=== PATIENT | female | born 1995 | race African-American/Black ===

== ENCOUNTER 2017-08-24 18:52 | Inpatient (IN) | payer SELFPAY ==
[2017-08-24 19:34] LABS: Bilirubin Negative (Negative); Blood, Urine Negative (Negative); Glucose, Urine (Dipstick) Negative (Negative); Ketone, Urine Trace mg/dL (Negative); Nitrite Negative (Negative); Protein, Urine (Dipstick) 30 mg/dL (Neg-Trace)
[2017-08-24 19:39] LABS: Bacteria/HPF 1+ HPF (None Seen); Hyaline Casts/LPF 7-10 HYALINE CAST LPF (0-3 Hyaline); RBC/HPF 0-3 HPF (0-3); Squamous Epithelial 21-50 HPF (0-3)
[2017-08-24 19:51] LABS: #Basophils 0.1 thou/uL (0.0-0.2); #Eosinphils 0.1 thou/uL (0.0-0.7); #Lymphocytes 1.8 thou/uL (1.20-3.40); #Monocytes 0.9 thou/uL (0.11-0.59); #Neutrophils 9.5 thou/uL (1.40-6.50); %Basophils 0.5 % (0.0-1.0); %Eosinophils 0.5 % (0.0-10.0); %Lymphocytes 14.3 % (21.0-51.0); %Monocytes 7.5 % (0.0-10.0); Mean Platelet Volume 7.9 fL (7.4-10.4); Red Blood Cell (RBC) Count 3.64 mill/uL (4.20-5.40); White Blood Cell (WBC) Count 12.3 thou/uL (4.8-10.8)
[2017-08-24 19:53] LABS: Trichomonas/HPF Rare HPF (None Seen); Yeast-All Forms None Seen HPF (None Seen)
[2017-08-24 20:14] LABS: ALT (SGPT) Less than 7 U/L (8-55); AST (SGOT) 11 U/L (5-34); Alkaline Phosphatase 98 U/L (40-150); Anion Gap 13 mmol/L (10-20); BUN (Urea Nitrogen) 6 mg/dL (7.0-18.7); Bilirubin, Total 0.3 mg/dL (0.2-1.2); Calc. Creatinine Clearance 0 mL/min (70-130); Calcium 8.9 mg/dL (7.8-10.44); Carbon Dioxide 22 mmol/L (22-29); Chloride 104 mmol/L (98-107); Estimated GFR-MDRD Greater than 90; Globulin 3.4 g/dL (2.4-3.5)
--- NOTE | 2017-08-24 23:03 | ULT ---
ULTRASOUND GREATER THAN 14 WEEKS COMPLETE: 08/24/17 HISTORY: 22-year-old female with irregular periods and lower back pain. History of urinary tract infection. A single viable intrauterine fetus is noted in cephalic presentation. The placenta is anterior. Amni otic fluid is within normal limits. heart rate is 147 beats per minute. Cervical length 3.6 cm. ANATOMY: Visualized brain, four chamber heart, three vessel cord, stomach, bladder, kidneys, spine, and extremities regions are unremarkable. BIOMETRY: BPD 6.1 cm - - 24 weeks, 5 days Head circumference 23.3 cm - - 25 weeks, 3 days Abdominal circumference 20 cm - - 24 weeks, 4 days Femur length 4.92 cm - - 26 weeks, 4 days IMPRESSION: Single viable intrauterine fetus, 25 weeks, 1 day. EDC 12/06/17. Estimated weight 807 grams. POS: [facility]
[2017-08-24 23:15] LABS: PTT 30.1 SEC (22.9-36.1)
[2017-08-25 00:04] VITALS: BMI 21.1
[2017-08-25] MEDS ORDERED: Ondansetron ODT 4 MG TAB PO PRN (01:04)
[2017-08-25] MEDS ORDERED: Calcium Gluconate 4.6 MEQ in Sodium Chloride 0.9% 100 ML IVPB PRN (01:19)
[2017-08-25] MEDS ORDERED: Promethazine HCl 25 MG/ML VIAL IM/IV PRN (01:19)
[2017-08-25] MEDS ORDERED: Magnesium Sulfate 20 GM/WATER 500 ML BAG IVPB SCH (01:30)
[2017-08-25] MEDS: Lactated Ringer's 1,000 ML IV SCH ×3 (01:58→23:00)
[2017-08-25] MEDS: Betamet Acet/Betamet Na Ph 30 MG/5 ML VIAL IM SCH (01:59)
[2017-08-25] MEDS: metroNIDAZOLE 500 MG TAB PO SCH ×4 (02:28→08:02)
[2017-08-25] MEDS: Acetaminophen 500 MG TAB PO PRN ×4 (02:28→18:31)
[2017-08-25 02:42] LABS: Amphetamine Not Detected (NotDetected); Methadone Not Detected (NotDetected); Methamphetamine Not Detected (NotDetected)
[2017-08-25] MEDS: hydrOXYzine 25 MG/ML VIAL IM PRN ×2 (02:50→11:02)
--- NOTE | 2017-08-25 07:37 | PDOC.EVN ---
Event Note - Event Note Event Note: Pt BPs 110-120s/60-70s NAD FHT moderate vaiability with occ mild variable decels toco occ resp. unlabored A/P: 1. 25.2 week IUP with reassuring NST 2. GHTN vs. Pre-e * Magnesium * betamethasone * 24 urine collection in progress * BPs wnl on magnesium 3. No care, incidental 4. Trichomonas * flagyl 2 grams PO over several hours to minimize GI upset 5. Drug/etoh use in 6. History of pre-e in Preg #3 treated with magnesium, delivery at 29 weeks
--- NOTE | 2017-08-25 07:52 | HP ---
DATE OF SERVICE: 08/25/2017 CHIEF COMPLAINT: Incidental with elevated blood pressures. HISTORY OF PRESENT ILLNESS: At the time of presentation, Ms. Mckinnon is a 22-year-old 4, p lida P3 female who presented to the emergency department with complaints of blurry vision. During he r evaluation in the emergency department, she was found to be with a gestational age of 25 weeks 2 days based on an ultrasound done this evening. The patient denied any knowledge of the preg chang. She states that her last menstrual period was end of June, but she does not have regular p eriods. The patient was noted to have elevated blood pressures in the emergency department in the 1 50s to 160s/80-90. The patient has a history of preeclampsia, which was treated with magnesium and delivery at 29 weeks in her last . Upon arriving to Labor and Delivery the patient states that she has had blurry vision intermittently for the last 4 days. She does report a bitemporal headache that has been going on for the last 4 d ays as well for which she did try some Tylenol a few days ago 650 mg without relief. She denies any scatoma. She reports chills, but no fever. She did have an episode of emesis in the emergency dep artment, but denies any constipation or diarrhea. She denies any cardiovascular or respiratory comp laints and states that when she lies flat on her back she does feel a heaviness in her chest. She d enies any hematuria or dysuria. She denies any vaginal discharge, itching, odor or irritation. While in the emergency department, the patient did admit to both marijuana and alcohol use recently. Additionally, she was found to have Trichomonas present on a urine specimen. PAST MEDICAL HISTORY: Negative. PAST SURGICAL HISTORY: section x3. OBSTETRICAL HISTORY: 1. Term section for arrest of descent notable for a broken blood vessel in the vagina that occurred while pushing and required transfusion of 2 units of blood. 2. Term section notable for elevated blood pressures. 3. Preeclampsia treated with magnesium and delivery at 29 weeks. 4. Current incidental, no care. GYNECOLOGIC HISTORY: The patient denies history of abnormal Pap smear. She reports having gonorrhe a approximately 2 years ago. Trichomonas was identified on urine specimen collected in the emergenc y department. MEDICATIONS: None. ALLERGIES: No known drug allergies. SOCIAL HISTORY: The patient is single. She does smoke. She admits to marijuana use and alcohol us e during this . PHYSICAL EXAMINATION: VITAL SIGNS: Blood pressure is 130-150/80-90, pulse 67, respiratory rate 18, temperature 99.2. GENERAL: Nontoxic appearing female in no acute distress. HEENT: Normocephalic, atraumatic. LUNGS: Clear to auscultation bilaterally without wheezes, rhonchi or rales. CARDIOVASCULAR: Regular rate and rhythm without murmurs, gallops or rubs. OBSTETRIC: heart tracing is category 1 for gestational age. Tocodynamometer shows occasional irregular contraction. ABDOMEN: Gravid, soft, nontender, nondistended, no rebound, no guarding. EXTREMITIES: Without cyanosis, clubbing or edema. NEUROLOGIC: Alert and oriented x3, no focal deficit. 1+ deep tendon reflexes. No clonus. LABORATORY DATA: Ultrasound done in the emergency department on 08/24/2017 showed a 25 week 1 day i ntrauterine with a EDC of 12/06/2017. Fetus weight 807 grams. Cephalic presentation. An terior placenta. No KANDIS was given. Sodium 136, potassium 3.3, creatinine 0.65, AST 11, ALT 7. Whi te blood cell count 12, hematocrit 34, platelets 236. Urinalysis is notable for 30 proteinuria, lar ge leukocyte esterase, 21-50 squamous epithelial cells, trace ketonuria, too numerous to count white blood cells and Trichomonas. ASSESSMENT AND PLAN: 1. A 25-week 2 day intrauterine with category 1 tracing. 2. contractions. The patient's cervix was examined and found to be a tight 1 cm, uneffaced and high station. This may be secondary to the Trichomonas. 3. Trichomonas. The patient will be treated with 2 grams of Flagyl p.o. in a single dose, but for several hours to minimize the GI upset. The patient was instructed that her partners will need to b e treated as well. 4. Elevated blood pressures. The patient, given her history will be admitted and placed on magnesi um. She will receive betamethasone 12 mg IM q.24 hours for 2 doses. We will obtain a 24-hour urine . The patient's blood pressures are currently mild range. Should delivery be indicated we will ini tiate transfer to a higher level of care given her early gestational age. 5. Drug use during the . 6. The patient expresses interest in giving the baby up for adoption. We will discuss with social work. 7. No care. In addition to workup for preeclampsia will also obtain HIV, hepatitis B surf anna antigen, RPR and a complete biophysical profile.
[2017-08-25] MEDS: Potassium Chloride 20 MEQ TAB PO SCH (08:01)
[2017-08-25] MEDS ORDERED: FLU VACC QS2017-18 36 mo. & older 0.5 ML SYRINGE IM ONE (09:00)
--- NOTE | 2017-08-25 09:57 | ULT ---
NONSTRESS BIOPHYSICAL PROFILE: HISTORY: Hypertension in . COMPARISON: None. TECHNIQUE: A nonstress biophysical profile is performed. FINDINGS: Single intrauterine gestation. Vertex presentation. heart tones with a rate of 147 beats per minute. Amniotic fluid index is 13.6 cm. NONSTRESS BIOPHYSICAL PROFILE: TONE: 2 BREATHIN MOVEMENT: 2 AMNIOTIC FLUID: 2 TOTAL SCORE: 8/8 IMPRESSION: Nonstress biophysical profile total score 8/8. POS: [facility]
--- NOTE | 2017-08-25 10:25 | PRG ---
DATE OF SERVICE: 08/25/2017 TIME OF EVALUATION: Around 09:30. LOCATION: Labor and Delivery, in bed 6. ANTEPARTUM LABOR AND DELIVERY NOTE In brief, this is a patient, who was admitted by Dr. Senior last night as a 25-week gestation (25 w eeks and 2 days), prior x3, who was admitted with blurry vision and elevated blood pressur es after first evaluation. Her initial assessment revealed a positive toxicology screen with THC be ing found. She has not had care for this . She was also noted to have Trichomona s on urine specimen assessment. She has been treated for this with Flagyl since admission. Current ly, she is undergoing magnesium IV therapy for blood pressure observation. She states no new issues today SUBJECTIVE: She is doing well, and has good movement, no vaginal bleeding or ruptured membran es. OBJECTIVE: The patient's blood pressure was 121/78. LABORATORY DATA: Complete metabolic profile and CBC were drawn on admission and they were normal. Labs pending include a 24-hour urine collection, which will be done at 02:00 on 08/26/2017. MONITOR: Shows, 1. A class 1 heart rate tracing/reactive nonstress test, even though she is only at 25 weeks. 2. No contractions on tocodynamometer. ASSESSMENT: This is a 22-year-old G4, P3 at 25 weeks and 2 days with initial findings of elevated b lood pressures, but now she is normotensive. There are no further symptoms at this time. It is uns ure if her initial blood pressures were due to the THC, which was in her system or to -harpreet nicol hypertension. PLAN: 1. Follow blood pressure observation for now. 2. Follow 24-hour urine. 3. I discussed with Radiology the patient's ultrasound. Per the radiologist, there is no evidence of placenta previa, although there is an anterior placenta. There is no suspicion of accreta. 4. Biophysical profile done this morning was normal at 8/8. 5. Continue inhouse observation. 6. The plan is for magnesium sulfate for 24 hours with possible in-house observation for 48 hours a fter that, and if the blood pressures are stable, we may allow for outpatient management. 7. Case management has been consulted, as she has voiced the possibility that this child will be pl aced for adoption and case management will also help with care arrangements.
[2017-08-25 10:35] LABS: #Lymphocytes 0.9 thou/uL (1.20-3.40); #Monocytes 0.1 thou/uL (0.11-0.59); #Neutrophils 10.5 thou/uL (1.40-6.50); %Basophils 0.1 % (0.0-1.0); %Eosinophils 0.1 % (0.0-10.0); %Lymphocytes 7.6 % (21.0-51.0); %Monocytes 0.7 % (0.0-10.0); Hematocrit 32.9 % (36.0-47.0); Mean Platelet Volume 8.1 fL (7.4-10.4); Red Blood Cell (RBC) Count 3.54 mill/uL (4.20-5.40); White Blood Cell (WBC) Count 11.4 thou/uL (4.8-10.8)
--- NOTE | 2017-08-25 10:49 | PRG ---
DATE OF SERVICE: 08/25/2017 TIME OF EVALUATION: Around 10:20, it is now 10:27. LOCATION: Labor and Delivery in LDR 6. ANTEPARTUM FOLLOWUP In brief, I was contacted by, Meredith, the patient's nurse, that the patient reported a temporal head ache. I evaluated the patient at bedside, about 5 minutes after the phone call. Her blood pressure was 135/68. Clinically, she did not appear to be in any acute distress. The patient has also rece ived Tylenol for her headache earlier this morning. Currently, there is no evidence of severe hyper tensive emergency; the patient did receive Vistaril previously for similar agitation/complaint of he adache with good results. I have discussed the case with Meredith and the patient's management. As t here currently is no indication for antihypertensive therapy, as an analgesic has already been order ed, we will proceed with another dose of Vistaril for conservative management. Once again, as she i s only 25 weeks and 2 days, we must have high index of suspicion for progressive disease if we are g oing to proceed with the delivery. For now, expectant management would be in the best interes t. I have discussed this with the patient as well. Currently, there is no evidence of severe hyper tensive emergency.
[2017-08-25 10:59] LABS: ALT (SGPT) Less than 7 U/L (8-55); AST (SGOT) 8 U/L (5-34); Alkaline Phosphatase 95 U/L (40-150); Anion Gap 12 mmol/L (10-20); BUN (Urea Nitrogen) 4 mg/dL (7.0-18.7); Bilirubin, Total 0.3 mg/dL (0.2-1.2); Calc. Creatinine Clearance 127 mL/min (70-130); Calcium 7.6 mg/dL (7.8-10.44); Carbon Dioxide 20 mmol/L (22-29); Chloride 105 mmol/L (98-107); Estimated GFR-MDRD Greater than 90; Globulin 2.9 g/dL (2.4-3.5); Magnesium 4.9 mg/dL (1.6-2.6)
[2017-08-25] MEDS: Magnesium Sulfate 20 gm/500 ml 20 GM/500 ML BAG IVPB SCH ×2 (11:49→20:29)
[2017-08-26] MEDS: Betamet Acet/Betamet Na Ph 30 MG/5 ML VIAL IM SCH (02:51)
[2017-08-26] MEDS: Acetaminophen 500 MG TAB PO PRN ×4 (02:53→20:43)
--- NOTE | 2017-08-26 03:08 | PRG ---
DATE OF SERVICE: 08/26/2017 TIME OF EVALUATION: 0110 hours. TIME OF DICTATION: 0115 hours. LOCATION: Labor and Delivery in LDR 6. HISTORY OF PRESENT ILLNESS: In brief, I just evaluated the patient's monitor. There is decre ased variability; however, the estimated gestational age is 25 weeks and 3 days, and the patient is also on magnesium sulfate. She has also received betamethasone. Both magnesium sulfate and betamet hasone may be affecting the heart rate variability. Additionally, it may be a result of the e augie gestational age at 25 weeks' and 3 days. There is no pathological decelerations at this time a nd there is no evidence of contractions or uterine hypertonus. Therefore, we will continue with our current plan. A 24 hours of magnesium sulfate will be done at approximately 2:00 a.m. and we will continue to monitor blood pressures at that time. Currently, her review of blood pressures show perla t her pressures are normal. Her last blood pressure was 111/65 at 0101 hours. Pressures have been ranging from 127/74 to 100/57. No current evidence of preeclampsia exists at this time. ASSESSMENT: This is a patient at 25 weeks' and 3 days, positive for cannabis and diagnosed with Tri chomonas yesterday. She has a history of 3 prior C-sections. She has been observed for elevated bl ood pressures when she first arrived. PLAN: 1. Continue the plan as previously dictated. 2. Magnesium sulfate will be over at 2 a.m. or so this morning. 3. We will continue to follow blood pressure for now, although there is currently no evidence of hy pertensive complications.
[2017-08-26 05:22] LABS: Collection Duration 24 hrs
[2017-08-26 05:41] LABS: Protein, Urine Less than 10 mg/dL (1-14)
--- NOTE | 2017-08-26 07:27 | PRG ---
DATE OF SERVICE: 08/26/2017 Status post magnesium sulfate/hospital day #1 SUBJECTIVE: In brief, this is a patient status post admission on 08/25/2017 by mayo Headley ho admitted the patient for blood pressure evaluation. She has been in labor and delivery, status p ost magnesium sulfate, now for 24 hours. Her 24-hour urine collection, which was over at about 2 in the morning revealed no urine protein. She has also been treated for Trichomonas this admission. As point of recall, she was positive for marijuana use in this . She also has a history of 3 prior C-sections. This child is for adoption. In brief, since magnesium sulfate has been discon tinued, the patient's blood pressures ranged from 138/85-118/70. There is no evidence of severe blo od pressures. Additionally, despite an occasional mild headache, there is no right upper quadrant p ain, or visual changes. I evaluated the patient at bedside and find no evidence of severe preeclamp tic symptoms or signs. ASSESSMENT: This is the patient hospital day #1 status post 24 hours of magnesium sulfate who is he re for blood pressure evaluation. Currently, there is no evidence of hypertensive disease. Her uri ne protein is negative. PLAN: 1. We will transfer to the antepartum floor for today with continue blood pressure measurements. I f her blood pressures remain in the normal range today, we will likely send her home tomorrow. 2. Social work/case management has been notified as this child is for adoption. 3. No acute needs at this time.
[2017-08-26] MEDS: Potassium Chloride 20 MEQ TAB PO SCH (11:08)
[2017-08-26] MEDS: Prenatal Vitamin 1 TAB PO SCH (11:10)
[2017-08-26] MEDS ORDERED: Mag-Al 1200 mg/1200 mg/30 ML UDCUP PO PRN (20:50)
[2017-08-27] MEDS: Acetaminophen 500 MG TAB PO PRN ×2 (02:30→08:44)
[2017-08-27 07:35] VITALS: BP 104/60; TEMP 97.9
[2017-08-27] MEDS: Prenatal Vitamin 1 TAB PO SCH (08:44)
[2017-08-27 10:08] LABS: #Eosinphils 0.1 thou/uL (0.0-0.7); #Lymphocytes 1.5 thou/uL (1.20-3.40); #Monocytes 1.4 thou/uL (0.11-0.59); #Neutrophils 12.5 thou/uL (1.40-6.50); %Basophils 0.2 % (0.0-1.0); %Eosinophils 0.7 % (0.0-10.0); %Lymphocytes 9.6 % (21.0-51.0); %Monocytes 8.9 % (0.0-10.0); Mean Platelet Volume 7.9 fL (7.4-10.4); Red Blood Cell (RBC) Count 3.17 mill/uL (4.20-5.40); White Blood Cell (WBC) Count 15.6 thou/uL (4.8-10.8)
--- NOTE | 2017-08-27 10:35 | PRG ---
DATE OF SERVICE: 08/27/2017 TIME: 10:22 This is a complete blood count follow up SUBJECTIVE: In brief, this patient has been cleared for discharge later this morning. I have obtai chloé a CBC as the patient has a nonspecific generalized complaint that at this point compatible with discomforts of . The CBC does show a white blood cell count elevation of 15.6; however, I ordered the CBC prior to remembering that the patient has received steroids. This slight leukocytos is reflects recent steroid administration. She continues afebrile with normal vital signs. As ther e is no evidence of labor, or vaginal bleeding, we still plan to discharge the patient home with close followup.
--- NOTE | 2017-08-27 16:56 | DIS ---
DATE OF ADMISSION: 08/25/2017 DATE OF DISCHARGE: 08/27/2017 PRINCIPAL DIAGNOSES: 1. . 2. Multigravida. 3. Prior section x3. 4. History of cannabis use during this . PRINCIPAL PROCEDURES PERFORMED: 1. A 24-hour urine collection. 2. monitoring. 3. Obstetrical ultrasound. 4. Biophysical profile study. HISTORY OF PRESENT ILLNESS: In brief, this is a patient who was admitted by Dr. Trent Senior on as a 22-year-old G4, P3 who came in with a complaint of blurry vision. She was positive fo r cannabis at that time. She also had some blood pressures of 150s to 160s systolics with diastolic s in the 80s-90s. She was admitted to Labor and Delivery for blood pressure evaluation. Her 24-maryellen r urine collection returned with no evidence of protein in the urine with an adequate collection of 3400 mL of total volume. She was also diagnosed with trichomoniasis and received Flagyl during this gestation. Ultrasound revealed a compatible with 25 weeks and 1 day with no other abnorm alities. This was the ultrasound that was used to date the . Based on this, the EDC is . Throughout her hospitalization, the patient received magnesium sulfate for 24 hours after initial admission. The blood pressures remained within the normal range. I assessed the patient o n 08/25/2017 as well as 08/27/2017 while I was on-call and confirmed that her blood pressures remain ed normotensive with a range of 134/76-104/60. Pulse was also in the 60s and normal. She was afebr ile. There was no evidence of labor, abruption, ruptured membranes or distress. Urdon e culture grew back no growth at 36 hours. I evaluated the patient on 08/27/2017 and that she was c linically stable, the decision was made to discharge her home with outpatient followup. It is impor tant to note that social work has been consulted as she has voiced desire to place this baby for ado ption and social work is helping with that. We have also suggested followup at either the Clinic or [facility] for continued care and later scheduling of her repeat . Jackelyn raheel was also briefed on the unknown risks of cannabis use during the . She was advised to st op. During the ultrasound, there was no evidence of placenta previa or accreta as per personal comm unication with the radiologist.
== END 2017-08-27 11:33 | disposition home or self-care (01) | DRG 781 ==
LOC: L&D/OP 18:52 → ERS 18:52 → EDSTATUS 23:53 → L&D 08-25 01:23 → 3SE 08-26 11:04
PROVIDERS: ADMIT Obstetrics & Gynecology Obstetrics; ATTEND Obstetrics & Gynecology Obstetrics
DX: O98.312 Other infections with a predominantly sexual mode of transmission complicating pregnancy, second trimester (principal); O60.02 Preterm labor without delivery, second trimester; O99.322 Drug use complicating pregnancy, second trimester; A59.01 Trichomonal vulvovaginitis; F12.90 Cannabis use, unspecified, uncomplicated; R03.0 Elevated blood-pressure reading, without diagnosis of hypertension; Z3A.25 25 weeks gestation of pregnancy
CPT/HCPCS: 36415; 76819; 76856; 80053; 80306; 81003; 81015; 81025; 82570; 83735; 84156; 84550; 85025; 85610; 85730; 86780; 86900; 86901; 87086; 87340; 87389; 87480; 87491; 87510; 87591; 87660; 93005; 93010; J0595; J0702; J2550; J3410; J3475; Q0162

== ENCOUNTER 2017-09-16 12:01 | Inpatient (IN) | payer SELFPAY ==
[2017-09-16 12:34] VITALS: BMI 21.1
[2017-09-16] MEDS ORDERED: Calcium Gluc 4.6 MEQ/10 ML (100 MG/ML) SLOW IVP PRN (12:45)
[2017-09-16] MEDS ORDERED: Magnesium Sulfate 20 GM/WATER 500 ML BAG IVPB SCH (12:45)
[2017-09-16] MEDS ORDERED: Magnesium Sulfate 20 gm/500 ml 20 GM/500 ML BAG ONE (12:46)
[2017-09-16] MEDS ORDERED: Ondansetron HCl/PF 8 MG in Sodium Chloride 0.9% 50 ML IVPB PRN (12:48)
[2017-09-16] MEDS: Lactated Ringer's 1,000 ML IV SCH (12:57)
[2017-09-16] MEDS ORDERED: FLU VACC QS2017-18 36 mo. & older 0.5 ML SYRINGE IM ONE (13:00)
--- NOTE | 2017-09-16 13:22 | PRG ---
DATE OF SERVICE: 09/16/2017 FOLLOWUP ASSESSMENT TIME: 13:10 In brief, I just discussed with the patient at bedside our plan of care. As she is only 28 weeks and 3 days by unsure criteria, the plan is to gain as much time as possible for benefit. We will order labs, give magnesium sulfate , and evaluate for symptoms of labor. As I was discussing these things with her, the die maintenance technician arrived to perform transabdominal ultrasound. I also asked to take a visual assessment of her cervical length. I collected Fibronectin myself and I have sent this off to the lab. The patient states no recent marijuana use or recent intercourse. Last marijuana use was just over 1 week ago. We have ordered urine toxicology screen as well. For now, we will continue to follow. NICU aware (Carmicheal). MTDD
[2017-09-16] MEDS: Magnesium Sulfate 20 gm/500 ml 20 GM/500 ML BAG IVPB SCH ×2 (13:25→20:49)
[2017-09-16 13:32] LABS: #Lymphocytes 1.3 thou/uL (1.20-3.40); #Monocytes 0.6 thou/uL (0.11-0.59); #Neutrophils 7.6 thou/uL (1.40-6.50); %Basophils 0.1 % (0.0-1.0); %Eosinophils 0.5 % (0.0-10.0); %Lymphocytes 13.4 % (21.0-51.0); %Monocytes 5.8 % (0.0-10.0); Hematocrit 34.7 % (36.0-47.0); Mean Platelet Volume 8.3 fL (7.4-10.4); Red Blood Cell (RBC) Count 3.76 mill/uL (4.20-5.40); White Blood Cell (WBC) Count 9.5 thou/uL (4.8-10.8)
[2017-09-16 13:34] LABS: Bilirubin Negative (Negative); Blood, Urine Negative (Negative); Glucose, Urine (Dipstick) Negative (Negative); Ketone, Urine Negative (Negative); Nitrite Negative (Negative); Protein, Urine (Dipstick) Negative (Neg-Trace); Urobilinogen 0.2 mg/dL (0.2-1.0)
[2017-09-16 13:37] LABS: Bacteria/HPF 1+ HPF (None Seen); Hyaline Casts/LPF 0-3 HYALINE CAST LPF (0-3 Hyaline); RBC/HPF 0-3 HPF (0-3)
[2017-09-16] MEDS: Ondansetron HCl/PF 4 MG/2 ML Vial IVP PRN (13:37)
[2017-09-16 13:44] LABS: Amphetamine Not Detected (NotDetected); Methadone Not Detected (NotDetected); Methamphetamine Not Detected (NotDetected)
[2017-09-16 13:53] LABS: ALT (SGPT) Less than 7 U/L (8-55); AST (SGOT) 10 U/L (5-34); Alkaline Phosphatase 133 U/L (40-150); Anion Gap 11 mmol/L (10-20); BUN (Urea Nitrogen) 7 mg/dL (7.0-18.7); Bilirubin, Total 0.3 mg/dL (0.2-1.2); Calc. Creatinine Clearance 127 mL/min (70-130); Calcium 8.8 mg/dL (7.8-10.44); Carbon Dioxide 21 mmol/L (22-29); Chloride 108 mmol/L (98-107); Estimated GFR-MDRD Greater than 90; Globulin 3.1 g/dL (2.4-3.5); Protein, Total 6.3 g/dL (6.0-8.3)
[2017-09-16] MEDS ORDERED: Ondansetron HCl/PF 4 MG/2 ML Vial ONE (13:58)
--- NOTE | 2017-09-16 14:16 | PRG ---
LABORATORY ASSESSMENT DATE OF SERVICE: 09/16/2017 TIME OF EVALUATION: 13:43 In brief, the patient's labs have returned, although not all of them are complete. CBC shows a whit e blood cell count that is normal at 9.5, hematocrit is normal at 34, platelets are normal at 211,00 0. Urinalysis shows small leukocyte esterase with 1+ bacteria. There is no evidence of ketones or blood. Nitrites are negative. We have ordered empiric treatment with IV Rocephin 1 gram q.24 hours in case there is any cystitis. fibronectin has been ordered, but that is still pending. Ult rasound has been done, which shows that the baby is in a cephalic presentation. Placenta is anterio r fundal, but there is some concern that it is grade 3. Cervical length by transabdominal assessmen t appears grossly normal with no funneling. Cervical length is about 3.3 cm. Amniotic fluid index is also normal at around 13. heart tones are normal in the 140s by ultrasound. All the douglas eters support, the stated gestational age assessment of 28 weeks by composite formula. For now, we will treat with the Rocephin, await the FFN and a complete metabolic profile. Blood pressure is cur rently are in the 140s/90s.
--- NOTE | 2017-09-16 14:39 | PRG ---
LABORATORY ASSESSMENT DATE OF SERVICE: 09/16/2017 TIME: 14:26. In brief, the patient's labs have returned. The complete metabolic profile is normal. There is no evidence of elevated liver function. Toxicology is positive for cannabis. fibronectin is neg ative. Continue to follow.
--- NOTE | 2017-09-16 14:49 | ULT ---
OB FOLLOW-UP: Date: 09/16/17 COMPARISON: 08/24/17, 08/25/17. HISTORY: -induced hypertension. Grade III lobulated placenta. 28 weeks. Need estimated weight. TECHNIQUE: Sagittal and transverse imaging of a gravid uterus is performed. FINDINGS: Single intrauterine gestation with vertex presentation. Anterior placenta. No evidence of previa. Li mited evaluation of the cervix due to shadowing secondary to vertex presentation. Placenta has a heterogeneous appearance with placental lakes. Grade III placenta is noted. heart tones with a rate of 147 beats/minute. Biometry: BPD: 7.21 cm, 29 weeks/0 days HC: 26.71 cm, 29 weeks/1 day AC: 22.53 cm, 27 weeks/0 days FL: 5.69 cm, 29 weeks/6 days Average age by sonography is 28 weeks/5 days. Estimated delivery date of 12/04/2017. Estimated weight is 1,203 gm, +/- 178 gm. Survey: The following structure were adequately demonstrated: Diaphragm, cord insertion, bladder, three ves jose cord, and four chamber heart. Amniotic fluid index is 13.8 cm. IMPRESSION: Single intrauterine gestation with heart tones. Average age by sonography is 28 weeks/5 days. Estimated delivery date of 12/04/2017. Estimated weight is 1,203 gm, +/- 178 gm. POS: [facility]
[2017-09-16] MEDS: cefTRIAXone\\ROCEPHIN 1 GM, Admixture Fee 1 EACH in Sodium Chloride 0.9% 100 ML IVPB SCH (16:06)
[2017-09-16] MEDS: Labetalol HCl 100 MG/20 ML VIAL SLOW IVP SCH ×2 (16:11→17:34)
[2017-09-16] MEDS: Acetaminophen 500 MG TAB PO PRN (17:15)
--- NOTE | 2017-09-16 17:27 | HP ---
DATE OF ADMISSION: 09/16/2017 TIME: 1230. LOCATION: Labor and Delivery. REASON FOR ADMISSION: 1. High blood pressure, at 28 weeks and 3 days. 2. This is a patient with no obstetrical provider yet. HISTORY OF PRESENT ILLNESS: In brief, this is a 22-year-old 4, para 3 with 3 prior sections, who was last seen eye Dr. Senior on 08/25/2017. At that time, the patient presented wit h some irregular contractions and was found to have some elevated blood pressures. She underwent a blood pressure evaluation and was also given betamethasone for lung maturity. There was a ful l course of steroids. For full details, please turn to that dictation dated 08/25/2017, which was p erk admission last evaluation at this institution. She also has a history of trichomoniasis found o n urine specimen, which was treated last admission with 2 grams of Flagyl. She arrives now with simin e irregular contractions and headache. She does have some right upper quadrant discomfort. REVIEW OF SYSTEMS: Complete review of systems was checked and is otherwise negative unless specifie d in the HPI. PAST MEDICAL HISTORY: Otherwise, negative. PAST SOCIAL HISTORY: Significant for marijuana use. PAST SURGICAL HISTORY: Significant for x3. PAST OB HISTORY: 1. She had term section for arrest of descent, for which she required 2 units of blood. S he also has a history of term section notable for elevated blood pressure in the past. 2. She has a history of preeclampsia, treated with magnesium sulfate at 29 weeks previously. 3. With this current , she was just diagnosed with this earlier this month and h as not established formal care. PAST GYNECOLOGIC HISTORY: Significant for having gonorrhea about 2 years ago. She also has a histo ry of trichomoniasis, which was treated earlier in August. ALLERGIES: None. SOCIAL HISTORY: Once again, as previously stated, she does smoke and does use marijuana. PHYSICAL EXAMINATION: VITAL SIGNS: She has a blood pressure of 156/104 and she is afebrile. Pulse is in the 80s-90s. Re spirations are unlabored at 18-20. GENERAL: Clinically, she is in no acute distress, although she looks somewhat uncomfortable. There is no evidence of vaginal bleeding or ruptured membranes on exam. Cervical exam is deferred until fibronectin will be obtained. On external monitor, heart tones are in the 130s to 140s with moderate variability. Nadine ctivity is difficult to gauge as she is only 28 weeks and 3 days, but moderate variability is noted. There are no decelerations. There are some low amplitude contractions and uterine irritability on tocodynamometer with contractions about every 5-7 minutes. These are low amplitude. Interventions ordered. I have ordered a complete metabolic profile, a CBC, a urine protein to creatinine ratio, a urine toxicity screen, Zofran, urinalysis, and fibronectin. I have ordered magnesium sulfate due to her symptoms of headache and elevated blood pressure. ASSESSMENT: This is a patient who is a 22-year-old at 28 weeks and 3 days by unsure criteria (25-we ek ultrasound) with an EDC of 12/06/2017, 25 weeks obtained on the 08/24. She has a history of Flagy l, which is treated. She has a history of preeclampsia in the past (she had 3 prior C-sections). PLAN: 1. Admit to Labor and Delivery. 2. Blood pressure evaluation. 3. Urine toxicology. 4. I have ordered labetalol 20 mg IV x1 to bring her diastolic ratio under 100. 5. Steroids have been given earlier this month, so steroids for lung maturation will not be g iven at this time. 6. If her symptoms continue, and/or blood pressures become overtly elevated and persistent, we may need to proceed with a repeat . At that time, we will notify the neonatology staff. A rep eat at 28 weeks. 7. For now, magnesium sulfate. 8. We will obtain a repeat ultrasound to get an update on estimated weight for now. 9. For now, we will continue with blood pressure control and attempt to gain as much time as possib le for benefit.
[2017-09-16] MEDS ORDERED: diphenhydrAMINE 50 MG/ML VIAL IVP SCH ×2 (18:00→23:00)
[2017-09-16] MEDS ORDERED: Metoclopramide HCl 10 MG/2 ML VIAL IVP SCH ×2 (18:00→23:00)
--- NOTE | 2017-09-16 18:07 | PRG ---
BLOOD PRESSURE FOLLOWUP DATE OF SERVICE: 09/16/2017 TIME: 1756 In brief, the patient's blood pressures remained only mildly elevated from 130sover 90s-140s over 90 s. Mag sulfate is infusing. However, the patient states that she still has a headache. I have ord ered 1 gram of Tylenol for this. I have also ordered a one-time dose of Reglan and Benadryl as alte rnative treatment for the headache for possible migraine. Although, she has a headache with elevate d blood pressure, as she is only 28 weeks. We are attempting to manage her headache symptoms conser vatively for now. Her urine protein was 11. Her creatinine was 59, giving her ratio of 0.18, which is not significantly proteinuria.
[2017-09-16] MEDS ORDERED: Metoclopramide HCl 10 MG/2 ML VIAL ONE (18:11)
--- NOTE | 2017-09-16 19:17 | ULT ---
EXAM: GALLBLADDER ULTRASOUND: 09/16/17 HISTORY: Right upper quadrant pain. Hypertension. patient. COMPARISON: None. TECHNIQUE: Utilizing a multihertz transducer, sonographic imaging of the right upper quadrant is performed in t he longitudinal and transverse plane. FINDINGS: Suboptimal evaluation of the pancreas. Hepatic parenchyma has a normal echotexture. No hepatic masses or intrahepatic biliary dilatation. T he contour of the hepatic margin appears to be maintained. Main portal vein is patent. Appropriate directional flow. Common bile duct diameter is 0.3 cm. No sonographic evidence of cholelithiasis, gallbladder wall thickening or pericholecystic fluid. Neg ative Tijerina's sign. Right kidney has a normal cortical echotexture. No hydronephrosis. Right kidney measures 6.5 x 11.3 x 4.9 cm. IMPRESSION: Unremarkable right upper quadrant ultrasound. No sonographic evidence of cholelithiasis or cholecyst itis. POS: PPP
--- NOTE | 2017-09-16 19:19 | PRG ---
DATE OF SERVICE: 09/16/2017 TIME: 1829. PATIENT FOLLOWUP In brief, I was just asked by Meredith, the patient's nurse, to reassess the patient at bedside. The patient states she still has a headache and is complaining of epigastric discomfort. Her last set o f labs were normal. Blood pressure was 140/90, but has now just spiked to 160/100. We have given l abetalol IV as well. I have also ordered a repeat complete metabolic profile to see if there are an y changes on her serum transaminases. I have also ordered a right upper quadrant ultrasound to rule out other pathology. Normally, if we were more advanced to gestation, we will proceed with repeat as she is a prior patient. However, at 28 weeks and 3 days, we are trying to ga in extra time for maturation. She is in no acute distress clinically, but she looks like she is having some discomfort. We will await the lab reassessment and check her right upper quadrant ul trasound. Magnesium sulfate is currently in use. If she does not improve over the subsequent hours , consideration might be given to proceeding with a repeat .
[2017-09-16 19:36] LABS: ALT (SGPT) Less than 7 U/L (8-55); AST (SGOT) 9 U/L (5-34); Alkaline Phosphatase 130 U/L (40-150); Anion Gap 13 mmol/L (10-20); BUN (Urea Nitrogen) 6 mg/dL (7.0-18.7); Bilirubin, Total Less than 0.2 mg/dL (0.2-1.2); Calc. Creatinine Clearance 112 mL/min (70-130); Calcium 7.9 mg/dL (7.8-10.44); Carbon Dioxide 20 mmol/L (22-29); Chloride 104 mmol/L (98-107); Estimated GFR-MDRD Greater than 90; Globulin 2.9 g/dL (2.4-3.5)
--- NOTE | 2017-09-16 20:26 | PRG ---
DATE OF SERVICE: 09/16/2017 TIME: 19:53. LAB AND ULTRASOUND FOLLOW UP In brief, The patient's complete metabolic profile from this evening has returned and there is no ac jennifer abnormalities. Liver transaminases are not elevated. Right upper quadrant ultrasound was performed, which shows an unremarkable right upper quadrant ultr asound. There is no sonographic evidence of stones, cholecystitis or other abnormalities. Continue to follow.
[2017-09-17] MEDS: Acetaminophen 500 MG TAB PO PRN ×2 (01:11→08:25)
[2017-09-17] MEDS: Lactated Ringer's 1,000 ML IV SCH ×2 (01:12→12:25)
[2017-09-17] MEDS ORDERED: hydrOXYzine Pamoate 25 mg Capsule PO SCH (03:30)
[2017-09-17] MEDS: Magnesium Sulfate 20 gm/500 ml 20 GM/500 ML BAG IVPB SCH (07:10)
[2017-09-17] MEDS ORDERED: Lidocaine 1% (PF) 30 ML VIAL ONE (09:07)
[2017-09-17] MEDS ORDERED: LR / Pitocin 40 units/1000 ml 1,000 ML ONE (09:07)
--- NOTE | 2017-09-17 10:04 | PDOC.EVN ---
Event Note - Event Note Event Note: Pt seen at 0930 S: pt still c/o frontal, sharp RON, no visual disturbance currently except for mild blurry vision. Some Right inguinal pain, no upper abdominal pain. O: Vital Signs (24 hours) Temp Pulse Resp BP BP Pulse Ox 09/17/17 08:03 98.8 F 72 16 97 09/16/17 23:44 98.3 F 66 18 09/16/17 17:34 66 156/98 H 09/16/17 16:11 63 09/16/17 14:29 98.4 F 63 18 100 09/16/17 12:28 98.4 F 63 18 154/93 H 100 Laboratory Results - last 24 hr 09/16/17 09/16/17 09/16/17 12:40 12:40 12:40 WBC RBC Hgb Hct MCV MCH MCHC RDW Plt Count MPV Neutrophils % Lymphocytes % Monocytes % Eosinophils % Basophils % Neutrophils # Lymphocytes # Monocytes # Eosinophils # Basophils # Sodium Potassium Chloride Carbon Dioxide Anion Gap BUN Creatinine Estimated GFR (MDRD) Glucose Calcium Total Bilirubin AST ALT Alkaline Phosphatase Serum Total Protein Albumin Globulin Albumin/Globulin Ratio Urine Color YELLOW Urine Clarity CLEAR Urine pH 7.0 Ur Specific [place] 1.006 Urine Protein Negative Urine Glucose (UA) Negative Urine Ketones Negative Urine Blood Negative Urine Nitrite Negative Urine Bilirubin Negative Urine Urobilinogen 0.2 Ur Leukocyte Esterase Small H Urine RBC 0-3 Urine WBC 4-6 H Ur Squamous Epith Cells 4-6 H Urine Bacteria 1+ H Hyaline Casts 0-3 HYALINE CAST U Random Total Protein 11 Urine Creatinine 59.15 Urine Opiates Screen Not Detected Ur Oxycodone Screen Not Detected Urine Methadone Screen Not Detected Ur Propoxyphene Screen Not Detected Ur Barbiturates Screen Not Detected Ur Tricyclics Screen Not Detected Ur Phencyclidine Scrn Not Detected Ur Amphetamines Screen Not Detected U Methamphetamines Scrn Not Detected U Benzodiazepines Scrn Not Detected U Cocaine Metab Screen Not Detected U Cannabinoids Screen Detected H Drug Screen Comment Fibronectin 09/16/17 09/16/17 09/16/17 13:10 13:21 13:21 WBC 9.5 RBC 3.76 L Hgb 11.7 L Hct 34.7 L MCV 92.5 MCH 31.1 H MCHC 33.6 RDW 12.0 Plt Count 211 MPV 8.3 Neutrophils % 80.2 H Lymphocytes % 13.4 L Monocytes % 5.8 Eosinophils % 0.5 Basophils % 0.1 Neutrophils # 7.6 H Lymphocytes # 1.3 Monocytes # 0.6 H Eosinophils # 0.0 Basophils # 0.0 Sodium 136 Potassium 3.9 Chloride 108 H Carbon Dioxide 21 L Anion Gap 11 BUN 7 Creatinine 0.66 Estimated GFR (MDRD) Greater than 90 Glucose 72 Calcium 8.8 Total Bilirubin 0.3 AST 10 ALT Less than 7 L Alkaline Phosphatase 133 Serum Total Protein 6.3 Albumin 3.2 L Globulin 3.1 Albumin/Globulin Ratio 1.0 L Urine Color Urine Clarity Urine pH Ur Specific [place] Urine Protein Urine Glucose (UA) Urine Ketones Urine Blood Urine Nitrite Urine Bilirubin Urine Urobilinogen Ur Leukocyte Esterase Urine RBC Urine WBC Ur Squamous Epith Cells Urine Bacteria Hyaline Casts U Random Total Protein Urine Creatinine Urine Opiates Screen Ur Oxycodone Screen Urine Methadone Screen Ur Propoxyphene Screen Ur Barbiturates Screen Ur Tricyclics Screen Ur Phencyclidine Scrn Ur Amphetamines Screen U Methamphetamines Scrn U Benzodiazepines Scrn U Cocaine Metab Screen U Cannabinoids Screen Drug Screen Comment Fibronectin Negative 09/16/17 19:06 WBC RBC Hgb Hct MCV MCH MCHC RDW Plt Count MPV Neutrophils % Lymphocytes % Monocytes % Eosinophils % Basophils % Neutrophils # Lymphocytes # Monocytes # Eosinophils # Basophils # Sodium 134 L Potassium 3.3 L Chloride 104 Carbon Dioxide 20 L Anion Gap 13 BUN 6 L Creatinine 0.75 Estimated GFR (MDRD) Greater than 90 Glucose 111 H Calcium 7.9 Total Bilirubin Less than 0.2 L AST 9 ALT Less than 7 L Alkaline Phosphatase 130 Serum Total Protein 6.0 Albumin 3.1 L Globulin 2.9 Albumin/Globulin Ratio 1.1 L Urine Color Urine Clarity Urine pH Ur Specific [place] Urine Protein Urine Glucose (UA) Urine Ketones Urine Blood Urine Nitrite Urine Bilirubin Urine Urobilinogen Ur Leukocyte Esterase Urine RBC Urine WBC Ur Squamous Epith Cells Urine Bacteria Hyaline Casts U Random Total Protein Urine Creatinine Urine Opiates Screen Ur Oxycodone Screen Urine Methadone Screen Ur Propoxyphene Screen Ur Barbiturates Screen Ur Tricyclics Screen Ur Phencyclidine Scrn Ur Amphetamines Screen U Methamphetamines Scrn U Benzodiazepines Scrn U Cocaine Metab Screen U Cannabinoids Screen Drug Screen Comment Fibronectin Gen. NAD Resp. CTA bilat no W, R, R CV. RRR, 2/6 SM, no gallops or rubs Abd. gravid, NT Ext. No C, C, E Neuro. A&O x 3 A/P: 1. 28.r week IUP with reactive NST with mild variable decels and periods of decreased variability possibly related to magnesium. WIll continue to monitor with NST q shift. * s/p BMZ course 08/26/17 2. GHTN with RON. Protein to Cr. ratio 0.186. * Given that RON is frontal may be sinus related. Will try antihistamine and fioricet since course of reglan and benadryl was effective before * consider MRI of head if still no resolution * history of pre-e/hypertensive disease in 2 prior pregnancies 3. No care. Refer pt to PNC upon discharge 4. prior CD x 3, planned repeat 5. Substance abuse with UDS +THC this . Consult IZABELA
[2017-09-17] MEDS ORDERED: Fioricet 325/50/40 mg Tablet PO PRN (14:14)
[2017-09-17] MEDS ORDERED: diphenhydrAMINE 50 MG CAP PO PRN (16:05)
[2017-09-17] MEDS ORDERED: Bisacodyl 10 MG SUPP PR PRN (16:05)
[2017-09-17] MEDS: cefTRIAXone\\ROCEPHIN 1 GM, Admixture Fee 1 EACH in Sodium Chloride 0.9% 100 ML IVPB SCH (17:02)
[2017-09-18] MEDS: Ondansetron HCl/PF 4 MG/2 ML Vial IVP PRN (01:08)
--- NOTE | 2017-09-18 02:08 | PDOC.EVN ---
Event Note - Event Note Event Note: S: Called by RN for pt having RON and then N/V. I asked that she give the zofran and fioricet ordered prn. Pt states she received the zofran, no fioricet. Her RON, N/v have all resolved and she was sleeping when i entered room. O: Vital Signs (12 hours) Temp Pulse Resp BP BP Pulse Ox 09/18/17 00:56 70 153/100 H 09/18/17 00:55 70 154/97 H 09/17/17 22:35 62 18 131/85 09/17/17 19:30 98.4 F 77 18 124/74 140/81 96 09/17/17 16:10 99.2 F 67 20 136/88 Weight Weight 135 lb Gen. NAD Resp. unlabored Abd. gravid, NT A/P: RON and NV both resolved (RON spont without Fioricet). BPs still mild range.
--- NOTE | 2017-09-18 09:59 | PRG ---
DATE OF SERVICE: 09/18/2017 SUBJECTIVE: The patient is hospital day #2 on Rocephin for a presumed UTI. She is 28-29 weeks gest ation with elevated blood pressures, a history of preeclampsia and previous x3. The patie nt's blood pressures were elevated to 150s/100s around midnight, but have been improved since then. She denies headaches, scotoma or blurred vision at this time. Ultrasound revealed an AGA . PAST MEDICAL HISTORY: None. PAST SURGICAL HISTORY: C-sections. SOCIAL HISTORY: Marijuana use. PHYSICAL EXAMINATION: VITAL SIGNS: The latest blood pressure is 144/94, temperature 98.0, pulse 64, respirations 16. HEENT: Within normal limits. ABDOMEN: Soft and nontender with no right upper quadrant pain, no CVA tenderness noted. Fundal hei ght is 28 cm. FHTs are 130s to 140s. EXTREMITIES: Without clubbing, cyanosis or edema. LABORATORY STUDIES: No new laboratory findings. Urine culture is no growth at 24 hours. IMPRESSION: 1. Urinary tract infection. 2. History of preeclampsia with deliveries. 3. Elevated blood pressures without evidence of preeclampsia at this time. PLAN: Continued mcfarlane rest, initiate baby aspirin once daily, continue Rocephin. We will follow blo od pressures. Anticipate discharge home with outpatient follow up on 09/19/2017.
[2017-09-18] MEDS ORDERED: cefTRIAXone\\ROCEPHIN 1 GM, Syringe 0.4 ML in Sterile Water 9.6 ML SLOW IVP SCH (14:00)
[2017-09-18] MEDS: Calcium Carbonate 500 MG ChewTAB PO PRN (23:06)
[2017-09-19] MEDS: Calcium Carbonate 500 MG ChewTAB PO PRN (18:38)
[2017-09-19] MEDS: Ondansetron ODT 8 MG TAB SL PRN (22:41)
[2017-09-20] MEDS: Ondansetron ODT 8 MG TAB SL PRN (07:32)
[2017-09-20] MEDS ORDERED: Lidocaine 2% Viscous Solution 20 ML, Aluminum & Magnesium Hydroxide 30 ML, Donnatal Eli... SSW SCH ×3 (08:00)
[2017-09-20 08:15] LABS: #Basophils 0.1 thou/uL (0.0-0.2); #Eosinphils 0.1 thou/uL (0.0-0.7); #Lymphocytes 1.3 thou/uL (1.20-3.40); #Monocytes 0.7 thou/uL (0.11-0.59); #Neutrophils 5.5 thou/uL (1.40-6.50); %Basophils 1.3 % (0.0-1.0); %Eosinophils 0.9 % (0.0-10.0); %Lymphocytes 17.2 % (21.0-51.0); %Monocytes 9.5 % (0.0-10.0); Hematocrit 34.4 % (36.0-47.0); Mean Platelet Volume 8.4 fL (7.4-10.4); Red Blood Cell (RBC) Count 3.72 mill/uL (4.20-5.40); White Blood Cell (WBC) Count 7.8 thou/uL (4.8-10.8)
[2017-09-20] MEDS ORDERED: Promethazine HCl 25 MG/ML VIAL IM PRN (08:26)
[2017-09-20] MEDS ORDERED: Potassium Chloride 40 MEQ in Premix Bag 1 BAG IVPB SCH (08:30)
[2017-09-20 08:38] LABS: ALT (SGPT) Less than 7 U/L (8-55); AST (SGOT) 22 U/L (5-34); Alkaline Phosphatase 141 U/L (40-150); Anion Gap 12 mmol/L (10-20); BUN (Urea Nitrogen) 9 mg/dL (7.0-18.7); Bilirubin, Total 0.4 mg/dL (0.2-1.2); Calc. Creatinine Clearance 118 mL/min (70-130); Calcium 9.1 mg/dL (7.8-10.44); Carbon Dioxide 24 mmol/L (22-29); Chloride 104 mmol/L (98-107); Estimated GFR-MDRD Greater than 90; Globulin 2.9 g/dL (2.4-3.5); Protein, Total 6.1 g/dL (6.0-8.3)
[2017-09-20] MEDS ORDERED: Lactated Ringer's 1,000 ML IV SCH (08:45)
--- NOTE | 2017-09-20 08:51 | PRG ---
DATE OF SERVICE: 09/20/2017 HISTORY OF PRESENT ILLNESS: The patient is a 22-year-old female admitted for concerns of severe pre eclampsia, was placed on magnesium during the workup and subsequently transferred to the floor. The patient has had some isolated severe pressures that seemed to be associated with episodes of extrem e stress, otherwise pressures have been normal to mild range. This morning I was called to the [facility] room for abdominal pain and vomiting. The patient reports that she had some coffee emesis thi s morning and just feels a lot of abdominal pain that began in her epigastric region and has since m lory more mid abdominal. She denies any uterine contractions. Denies any right upper quadrant tend erness, denies any history of ulcers. PHYSICAL EXAMINATION: VITAL SIGNS: At the time of this episode was 161/104 and then 165/101, temperature 99.2, pulse is 6 5, respiratory rate of 20. GENERAL: In the time that I have seen her, the patient did appear to be in little distress. She i s alert and oriented, and cooperative and pleasant to interact with. HEENT: Head is normocephalic, atraumatic. LUNGS: Clear to auscultation bilaterally. HEART: Regular rate and rhythm. ABDOMEN: Tender to palpation predominantly in the mid periumbilical region and did not tolerate pal pation in the region. Epigastric tenderness seems to be resolved. Uterus is soft to palpation, not appear to be having contractions and did not appear to have right upper quadrant tenderness. Bowel sounds are hyperactive or very active on auscultation. LABORATORY: Laboratory this morning, the patient has a white count of 7.8, hemoglobin 11.6, hematoc rit 34.4, platelets of 187,000. CMP is pending; however, 2 days ago, had normal liver functions and creatinine. ASSESSMENT AND PLAN: The patient is a 22-year-old female who has acute onset abdominal pain after s ome coffee ground emesis. I ordered a GI cocktail to see if this would improve her discomfort and I have asked Dr. Marin is now coming on to reevaluate. So far labs appear normal. The CMP is pend ing and Dr. Marin will be making further management decisions.
--- NOTE | 2017-09-20 09:09 | PDOC.EVN ---
Event Note - Event Note Event Note: When I went to see the patient, she was complaining of severe pain and vomiting. I ordered an IV with fluids and phenergan and prior to receiving any of these things, the patient reported she felt fine and wanted to go home. I went back to discuss that it would be potentially dangerous to go home with recent severe range blood pressures but she believes them to be due to having them taken while she was upset or vomiting. I told her there was no way to prove that without having more normal blood pressures. I told her that it could be dangerous for her and her baby to leave and she voiced understanding. She will be signing out AMA. She has an appointment scheduled for tomorrow afternoon at the clinic. She agrees to return if she has severe pain, bleeding, headache, vision changes, or decreased movement.
[2017-09-20 09:22] VITALS: BP 158/112; TEMP 97.7
== END 2017-09-20 09:25 | disposition left against medical advice (07) | DRG 781 ==
LOC: L&D/OP 12:01 → L&D 13:10 → 3SW 09-17 16:04
PROVIDERS: ADMIT Obstetrics & Gynecology; ATTEND Obstetrics & Gynecology
DX: O14.13 Severe pre-eclampsia, third trimester (principal); O23.43 Unspecified infection of urinary tract in pregnancy, third trimester; N39.0 Urinary tract infection, site not specified; O99.323 Drug use complicating pregnancy, third trimester; O99.333 Smoking (tobacco) complicating pregnancy, third trimester; Z3A.28 28 weeks gestation of pregnancy; F17.210 Nicotine dependence, cigarettes, uncomplicated; F12.10 Cannabis abuse, uncomplicated; Z87.42 Personal history of other diseases of the female genital tract
CPT/HCPCS: 36415; 59025; 76705; 76816; 80053; 80306; 81003; 81015; 82570; 82731; 84156; 85025; 87086; A4216; J0696; J1200; J2001; J2405; J2765; J3475; J7050; Q0177

== ENCOUNTER 2017-10-02 12:17 | Inpatient (IN) | payer MEDICARE, MEDICAID ==
[2017-10-02 12:45] VITALS: BMI 21.1
[2017-10-02] MEDS ORDERED: Labetalol HCl 100 MG/20 ML VIAL ONE (13:03)
[2017-10-02] MEDS ORDERED: Calcium Gluc 4.6 MEQ/10 ML (100 MG/ML) SLOW IVP PRN ×2 (13:26→13:35)
[2017-10-02] MEDS ORDERED: FLU VACC QS2017-18 36 mo. & older 0.5 ML SYRINGE IM ONE (13:30)
[2017-10-02] MEDS ORDERED: Magnesium Sulfate 20 GM/WATER 500 ML BAG IVPB SCH (13:30)
[2017-10-02] MEDS ORDERED: Labetalol HCl 100 MG/20 ML VIAL SLOW IVP SCH (13:35)
[2017-10-02] MEDS ORDERED: Bicitra 30 ML UDCUP PO SCH (13:35)
[2017-10-02] MEDS ORDERED: Ondansetron HCl/PF 4 MG/2 ML Vial IVP PRN ×4 (13:35→19:38)
[2017-10-02] MEDS ORDERED: CEFAZOLIN/Water 2 GM/20 ML SYRINGE SLOW IVP SCH (13:35)
[2017-10-02] MEDS ORDERED: Promethazine HCl 25 MG/ML VIAL IM PRN ×4 (13:35→19:38)
[2017-10-02] MEDS: Lactated Ringer's 1,000 ML IV SCH (13:45)
[2017-10-02 13:46] LABS: Hematocrit 30.9 % (36.0-47.0); Mean Platelet Volume 8.8 fL (7.4-10.4); Red Blood Cell (RBC) Count 3.34 mill/uL (4.20-5.40)
[2017-10-02 14:00] LABS: ALT (SGPT) Less than 7 U/L (8-55); AST (SGOT) 15 U/L (5-34); Alkaline Phosphatase 156 U/L (40-150); Anion Gap 16 mmol/L (10-20); BUN (Urea Nitrogen) 7 mg/dL (7.0-18.7); Bilirubin, Total 0.3 mg/dL (0.2-1.2); Calc. Creatinine Clearance 133 mL/min (70-130); Calcium 8.1 mg/dL (7.8-10.44); Carbon Dioxide 19 mmol/L (22-29); Chloride 108 mmol/L (98-107); Estimated GFR-MDRD Greater than 90; Globulin 2.6 g/dL (2.4-3.5); Protein, Total 5.6 g/dL (6.0-8.3)
[2017-10-02] MEDS: Magnesium Sulfate 20 gm/500 ml 20 GM/500 ML BAG IVPB SCH ×2 (14:06→22:51)
[2017-10-02] MEDS: Betamet Acet/Betamet Na Ph 30 MG/5 ML VIAL IM SCH (14:24)
[2017-10-02 14:37] LABS: Amphetamine Not Detected (NotDetected); Methadone Not Detected (NotDetected); Methamphetamine Not Detected (NotDetected)
--- NOTE | 2017-10-02 15:17 | PDOC.APC ---
Antepartum Consult VANESSA NORIEGA is a 22 year old female at [30 5/7] gestational weeks. I was asked by Dr Horn to speak with the patient regarding anticipated course for a baby born at 30 weeks. I spoke with the patient in her room. I outlined that the timing and mode of delivery is a decision that will be made by the OB service. Once the patient is taken for delivery, the resuscitation team will be present. The initial focus will be on respiratory stabilization and may include minimal assistance, CPAP or intubation with surfactant administration. I discussed that the patient will need to be admitted to the NICU in an isolette due to temperature instability associated with prematurity. We will then obtain IV access (peripheral will be first line, umbilical if unable to obtain peripheral) as babies are at risk for hypoglycemia. We discussed that babies born are at higher risk for feeding intolerance , infection and jaundice. I discussed that breastmilk is the best nutrition for babies and she is strongly encouraged to pump after delivery. Mother does not plan to breastfeed. We discussed donor milk and she expressed consent for administration of donor milk. I explained that the duration of hospital stay will be determined on the clinical course of the baby. I outlined the milestones that needed to be achieved to ensure safe discharge home. She had the opportunity to ask questions. I encouraged her to contact our service again if additional questions arise. Mother did receive a course of betamethasone in August and received a rescue dose today. Labs: Ante Labs Blood Type O POSITIVE 10/02/17 13:07 Hep Bs Antigen Non-Reactive S/CO (NonReactive) 10/02/17 13:07
[2017-10-02] MEDS ORDERED: Oxytocin 10 UNITS/ML VIAL ONE ×2 (15:41→16:18)
[2017-10-02] MEDS ORDERED: Fentanyl 100 MCG/2 ML VIAL ONE (15:41)
[2017-10-02] MEDS ORDERED: Morphine PF 1 MG/ML SYR ONE (15:41)
[2017-10-02] MEDS ORDERED: Ondansetron HCl/PF 4 MG/2 ML Vial ONE (16:32)
[2017-10-02] MEDS ORDERED: Ketorolac Tromethamine 30 MG/ML VIAL ONE (16:32)
[2017-10-02] MEDS ORDERED: Naloxone HCl 0.4 mg/ml Vial IVP PRN ×4 (16:38→19:38)
[2017-10-02] MEDS ORDERED: Eucerin (Mineral Oil/Petrolatum,White) 30 gm Jar TOP PRN ×2 (16:38→19:38)
[2017-10-02] MEDS ORDERED: Promethazine HCl 25 MG SUPP PR PRN ×2 (16:38→19:38)
[2017-10-02] MEDS ORDERED: HYDROmorphone 2 MG/ML VIAL SLOW IVP PRN (16:38)
[2017-10-02] MEDS ORDERED: Meperidine HCl/PF 25 MG/ML VIAL SLOW IVP PRN (16:38)
[2017-10-02] MEDS ORDERED: Naloxone HCl 0.4 mg/ml Vial IV PRN ×2 (16:38→19:38)
[2017-10-02] MEDS ORDERED: diphenhydrAMINE 50 MG/ML VIAL IVP PRN ×2 (16:38→19:38)
[2017-10-02] MEDS ORDERED: Communication Order-Pharmacy FS SCH ×2 (16:45→19:45)
[2017-10-02] MEDS ORDERED: diphenhydrAMINE 25 MG CAP PO PRN (17:07)
[2017-10-02] MEDS ORDERED: Simethicone Chewable 80 MG TAB PO PRN (17:07)
[2017-10-02] MEDS ORDERED: HYDROcodone/Acetaminophen 5/325 mg Tablet PO PRN ×2 (17:07)
[2017-10-02] MEDS ORDERED: LR w/ Pitocin 40 units/1000 ML BAG IV SCH (17:15)
[2017-10-02] MEDS ORDERED: Ketorolac Tromethamine 30 MG/ML VIAL IVP PRN ×2 (19:38→23:00)
[2017-10-02] MEDS ORDERED: Morphine PF 1 MG/ML SYR IVP PRN (20:13)
--- NOTE | 2017-10-02 21:53 | HP ---
DATE OF ADMISSION: 10/02/2017 REASON FOR ADMISSION: Severe preeclampsia at 31-32 weeks gestation. HISTORY OF PRESENT ILLNESS: Ms. Mckinnon is a 22-year-old 4, para 3 at 31-32 weeks gestatio n by best criteria, who has been seen multiple times for hypertension. She is now [address] initial betamethasone administration for lung maturity and admission for hypertension. She has re-presented twice and noted to have elevated blood pressure. Today, she presents complaining of headache, blurred vision and right upper quadrant pain. She has an active fetus. 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 The patient had an ultrasound on 09/16/2017, which placed her at 29 weeks gestation. She went on 08/24/2017 with a composite gestational age of 25 weeks 1 da y with an estimated due date of 12/06/2017. She has not had any antepartum care outside of her visi t to the hospital. She has had positive urine drug screens for marijuana. This baby is for adoptio n. Laboratory includes O positive, antibody negative, Pap negative, rubella not done, VDRL nonreact ambrocio, hepatitis B, GC chlamydia negative. PAST MEDICAL HISTORY: Denies. PAST SURGICAL HISTORY: C-sections only. ALLERGIES: Denies. MEDICATIONS: vitamins. SOCIAL HISTORY: Reports alcohol and marijuana use during the . PHYSICAL EXAMINATION: GENERAL: Black female complaining of headache. VITAL SIGNS: Blood pressure upon presentation was 186/100, labetalol 20 mg IV x1, reduced to 150s o noah 85 to 90, temperature 98.6, respirations 18, pulse 82. HEENT: Within normal limits. LUNGS: Clear to auscultation bilaterally. HEART: Regular rhythm. ABDOMEN: Soft and nontender. She has mild tenderness in the right upper quadrant. Vulva is withou t lesions. Vagina without discharge. Cervix closed, long, and high. Fundal height 31 cm. FHTs 13 0s. EXTREMITIES: No edema. DTRs are 2-3+ with 2-beat clonus. LABORATORY AND X-RAY FINDINGS: Hematocrit is 31%, normal platelet count. Creatinine is 0.63. Live r enzymes are within normal limits. Protein to creatinine ratio is 0.6. Urine drug screen is posit ambrocio for cannabinoids. IMPRESSION: Severe preeclampsia at 31-32 weeks gestation with insufficient care and poor m aternal compliance with outpatient therapy. The patient is 1 month status post betamethasone primar y dose. The patient has clonus today. PLAN: I discussed with patient plan of care. We will admit the patient and administer IV labetalol as needed. We will administer magnesium sulfate. We will proceed with repeat section. B ecause of the patient's headache and severe preclampsia and considering the fact that the patient murguia s already received 1 course of betamethasone, we will not attempt to prolong for maximum effect of rescue dose of betamethasone. The optimal delay for a rescue dose of betamethaso ne not established. We will proceed with in the next few hours and treat hypertension/pre eclampsia in the setting.
[2017-10-02] MEDS ORDERED: Acetaminophen 1,000 MG in Premix Bag 1 BAG IVPB PRN (22:00)
[2017-10-03] MEDS: Lactated Ringer's 1,000 ML IV SCH (02:41)
[2017-10-03] MEDS ORDERED: Meperidine HCl/PF 25 MG/ML VIAL IM PRN (04:45)
[2017-10-03] MEDS ORDERED: HYDROcodone/Acetaminophen 5/325 mg Tablet PO PRN ×3 (04:45→20:05)
[2017-10-03 05:42] LABS: Hematocrit 28.1 % (36.0-47.0); Mean Platelet Volume 8.7 fL (7.4-10.4); Red Blood Cell (RBC) Count 3.03 mill/uL (4.20-5.40); White Blood Cell (WBC) Count 16.1 thou/uL (4.8-10.8)
--- NOTE | 2017-10-03 06:03 | PDOC.PP ---
Post Progress Note Post Day #: 1 licu care Subjective: bps improved, 120-40/70s PO intake tolerated: yes Flatus: yes Ambulation: yes Vital Signs (12 hours) Temp Pulse Resp 10/03/17 04:00 97.7 F 82 14 10/03/17 00:10 98.0 F 82 16 10/02/17 20:00 97.7 F 82 16 Weight Weight 135 lb - Physical Examination General: NAD Cardiovascular: no m/r/g, RRR Respiratory: clear to auscultation bilaterally Abdominal: + bowel sounds, lochia, no distention, appropriately TTP Extremities: negative homans (B) Skin: CS incision dry & intact, no rash Neurological: no gross focal deficits Psychiatric: A&Ox3, normal affect Result Diagrams: 10/03/17 05:04 10/02/17 13:07 Additional Labs: Post Labs Blood Type O POSITIVE 10/02/17 13:07 Hep Bs Antigen Non-Reactive S/CO (NonReactive) 10/02/17 13:07 (1) Hypertension affecting in third trimester Code(s): O16.3 - UNSPECIFIED MATERNAL HYPERTENSION, THIRD TRIMESTER Status: Acute - Assessment/Plan continue licu care and mg. probably floor transfer later today
--- NOTE | 2017-10-03 06:26 | OP ---
DATE OF OPERATION: 10/02/2017 PREOPERATIVE DIAGNOSES: Severe preeclampsia, previous section x3, 31 to 32 weeks. POSTOPERATIVE DIAGNOSES: Severe preeclampsia, previous section x3, 31 to 32 weeks, extreme ly thin multiple scar lower uterine segment. PROCEDURE: Repeat low transverse section with extension. SURGEON: Polo Horn M.D. SENIOR PROCUREMENT MANAGER: Sirisha Vega M.D., PGY-2. ANESTHESIA: Subarachnoid block. ANESTHESIOLOGIST: Gus Bowie M.D. ESTIMATED BLOOD LOSS: 900 mL. COMPLICATIONS: None. DRAINS: Vazquez to gravity. SPECIMENS REMOVED: Placenta with 3-vessel cord. OPERATIVE FINDINGS: 1. Vigorous female , Apgars pending, 2 pounds 15 ounces, NICU with Dr. Quevedo in attendan ce. 2. Normal-appearing ovaries and tubes bilaterally. 3. Hemostasis with clear urine at the end of the procedure. 4. Multiple lower uterine segment defect requiring multiple suture layers to close. DISPOSITION: Recovery room LICU in good condition. DESCRIPTION OF OPERATIVE PROCEDURE: After obtaining proper informed consent, the patient was taken to the operating room where subarachnoid block was achieved without difficulty. The patient prepped and draped in the usual manner. Previous Pfannenstiel incision identified, incised sharply and car ried down to the fascia. It was incised sharply superiorly and laterally with curved Ji scissors. Rectus dissected off sharply superiorly and inferiorly, divided in midline, peritoneum entered rachele ntly, taking care to avoid trauma to underlying viscera. Jorge Alberto O retractor placed inside. Multipl e scarring at the level of the lower uterine segment was noted with near windows already present in the lower uterine segment. Bladder was noted to be well down and so this was not taken down. A low transverse hysterotomy incision was made in the midline incision superior and laterally with finger fractionization. Infant's head elevated through the hysterotomy, suctioned, cord clamped and cut a nd handed off to neonatology in attendance after delayed cord clamping. Usual cord blood samples ob tained. Placenta removed manually. Hysterotomy was inspected and noted to be very ratty along the lower right hand border of it. It was initially closed in a running continuous locking manner using #1 Monocryl. The area that was very ratty along the lower right hand side of it was noted to be ch ronically tearing through with each pass of the suture on that side. After this was done, #1 chromi c was used to reapproximate at a 90-degree angle to the hysterotomy. This was mostly successful in achieving closure, but there were still some small windows, these were closed with a secondary sutur e, performing the same thing. Good hemostasis was noted after multiple suture level closures of thi s hysterotomy. Suction irrigation was carried out and the reinspection of the hysterotomy revealed it to be dry. FloSeal was obtained for extra hemostasis and the Jorge Alberto O retractor removed. The re ctus was inspected. Small areas of bleeding along the rectus secondary to extensive scarring from t hree previous C-sections was rendered hemostatic with Bovie cautery, and the fascia was reapproximat ed using an #0 PDS suture. Subcutaneous tissue was irrigated and rendered hemostatic with Bovie cau abdi and reapproximated using skin harpal. Pressure dressing was applied, and the patient was take n to the recovery room in good condition.
[2017-10-03] MEDS: Magnesium Sulfate 20 gm/500 ml 20 GM/500 ML BAG IVPB SCH (08:29)
[2017-10-03] MEDS ORDERED: Adacel (T-DAP) 0.5 ML VIAL IM ONE (09:00)
[2017-10-03] MEDS ORDERED: Ketorolac Tromethamine 30 MG/ML VIAL ONE (16:12)
[2017-10-03] MEDS ORDERED: Zolpidem Tartrate 5 MG TAB PO PRN (20:05)
[2017-10-03] MEDS ORDERED: diphenhydrAMINE 25 MG CAP PO PRN (20:05)
[2017-10-03] MEDS ORDERED: Bisacodyl 10 MG SUPP PR PRN (20:05)
[2017-10-03] MEDS ORDERED: Ondansetron HCl/PF 4 MG/2 ML Vial IVP PRN (20:05)
[2017-10-03] MEDS ORDERED: Lanolin Ointment 7 GM TUBE TOP PRN (20:05)
[2017-10-03] MEDS: Ibuprofen 800 MG TAB PO SCH (22:35)
[2017-10-03] MEDS: Docusate Calcium (SURFAK) 240 MG CAP PO SCH ×2 (22:35→22:36)
[2017-10-04] MEDS: Betamet Acet/Betamet Na Ph 30 MG/5 ML VIAL IM SCH (00:55)
[2017-10-04] MEDS: Lactated Ringer's 1,000 ML IV SCH (00:55)
[2017-10-04] MEDS: HYDROcodone/Acetaminophen 5/325 mg Tablet PO PRN ×3 (01:00→14:30)
[2017-10-04] MEDS: Ibuprofen 800 MG TAB PO SCH ×2 (05:16→14:30)
[2017-10-04 05:28] LABS: Hematocrit 26.5 % (36.0-47.0); Mean Platelet Volume 8.7 fL (7.4-10.4); Red Blood Cell (RBC) Count 2.82 mill/uL (4.20-5.40); White Blood Cell (WBC) Count 15.2 thou/uL (4.8-10.8)
[2017-10-04 08:14] VITALS: BP 145/93; TEMP 99.4
--- NOTE | 2017-10-04 08:21 | PRG ---
DATE OF SERVICE: 10/04/2017 SUBJECTIVE: The patient is postoperative day #2 status post a repeat lower transverse sect ion at 30 weeks and 5 days due to severe PIH. The patient was reporting that she is having a decent pain control with her hydrocodone and is tolerating p.o., voiding on her own, having decreased loch ia. Blood pressures have been elevated over the last 24 hours in the low severe range. OBJECTIVE: VITAL SIGNS: Highest blood pressure is 166/96. Currently, her blood pressure is 138/86, temperatur e 98.8, pulse is 64, respiratory rate of 14. GENERAL: She appears to be in no acute distress. She is alert and oriented, and cooperative and pl easant to interact with. HEAD: Normocephalic, atraumatic. ABDOMEN: Soft. Fundus is firm at the umbilicus. EXTREMITIES: Nontender, nonedematous. Her incision is clean, dry, and intact with harpal and soft . No induration, erythema. LABORATORY DATA: Hemoglobin this morning is 8.7, hematocrit 26.5. Her platelets are 197,000. ASSESSMENT AND PLAN: The patient is a 22-year-old female who is now postop day #2 status post a rep eat lower transverse section at 30 weeks for severe PIH. Anticipate routine care today. W e will be monitoring blood pressure for need of intervention.
[2017-10-04] MEDS: Docusate Calcium (SURFAK) 240 MG CAP PO SCH (08:32)
[2017-10-04] MEDS ORDERED: Prenatal Vitamin 1 TAB PO SCH (09:00)
[2017-10-04] MEDS ORDERED: Ferrous Sulfate 325 MG TAB PO SCH (09:00)
[2017-10-04] MEDS ORDERED: HYDROcodone/Acetaminophen 5/325 mg Tablet ONE (10:14)
--- NOTE | 2017-10-04 14:50 | PDOC.EVN ---
Event Note - Event Note Event Note: 10/04/17 @ 1446: DISCHARGE NOTE: Diagnosis: 1. PIH 2. Prior CS 3. Repeat CS at 30-31 weeks gestation ([facility]) Patient had stated she would like to leave AMA today due to desire to go home. i have discussed with her our desire to monitor BPs for now as well as postop course. She would like to leave AMA. I will give her a RX for motrin and 10 pills of Tylenol #3 for postop. I have discussed staple removal for her on this Monday or Monday at [facility]. I have reviewed her vitals at this point. Exam benign. We discussed PIH symptoms and when to return for any postop issue. She will sign out AMA.
--- NOTE | 2017-10-04 15:49 | PDOC.EVN ---
Event Note - Event Note Event Note: 10/04/17 @ 1550: Release from hospital Clarification: Patient was not officially discharged as she elected to leave AMA after my interview with her. I advised she stay until tomorrow for further BP eval. She will have staple removal end of week, or next Monday at latest. Questions answered.
== END 2017-10-04 16:30 | disposition left against medical advice (07) | DRG 766 ==
LOC: L&D/OP 12:17 → L&D 13:09 → 3SW 10-03 19:52
PROVIDERS: ADMIT Obstetrics & Gynecology; ATTEND Obstetrics & Gynecology
PROC: 10D00Z1 Extraction of Products of Conception, Low, Open Approach (ICD-10-PCS; principal; 2017-10-02)
PROC: 0UQ90ZZ Repair Uterus, Open Approach (ICD-10-PCS; 2017-10-02)
DX: O14.14 Severe pre-eclampsia complicating childbirth (principal); O99.324 Drug use complicating childbirth; O13.4 Gestational [pregnancy-induced] hypertension without significant proteinuria, complicating childbirth; Z37.0 Single live birth; F12.90 Cannabis use, unspecified, uncomplicated; O99.314 Alcohol use complicating childbirth; O34.219 Maternal care for unspecified type scar from previous cesarean delivery; N85.8 Other specified noninflammatory disorders of uterus; Z3A.31 31 weeks gestation of pregnancy
CPT/HCPCS: 36415; 80053; 80306; 81003; 82570; 83735; 84156; 85027; 86765; 86780; 86850; 86900; 86901; 87340; 88307; J0131; J0702; J1200; J1885; J2270; J2274; J2310; J2405; J2590; J3010; J3475